=== PATIENT | male | born 1955 | race Caucasian/White ===

== ENCOUNTER → 2017-06-17 | Outpatient (REF) | payer BC ==
[2017-06-17 17:37] LABS: PLATELET COUNT, AUTOMATED 185 K/uL (150-450)
== END ==
PROVIDERS: ATTEND Physician Assistant Medical
DX: R10.9 Unspecified abdominal pain (principal)
CPT/HCPCS: 82040; 82247; 82310; 82374; 82435; 82565; 82947; 84075; 84132; 84155; 84295; 84450; 84460; 84520; 85025

== ENCOUNTER → 2017-06-17 | Outpatient (CLI) | payer BC ==
[~2017-06-17] MED LIST: IOPAMIDOL 76% 75 ML INFUS BTL 0 ML ONE; IOPAMIDOL 76% 75 ML INFUS BTL 75 ML ONE
--- NOTE | 2017-06-17 20:01 | RADIOLOGY IMAGING REPORT ---
FACILITY: [facility] PATIENT NAME: Petros Hernández : 1955 MR: [id number] V: [id number] EXAM DATE: ORDERING PHYSICIAN: OLEGARIO SALDAÑA TECHNOLOGIST: Location: [facility] [place] Patient: Petros Hernández : 1955 Visit/Account:[id number] Date of Sevice: 06/17/2017 ABDOMEN W CONTRAST HISTORY: Left flank pain, abdominal pain. TECHNIQUE: CT lung bases to the pubic symphysis obtained with IV contrast. CONTRAST: 75 cc Isovue-370 IV. COMPARISON: None. FINDINGS: Liver/gallbladder: The liver demonstrates homogeneous enhancement without evidence of mass. The gal lbladder is normal. Spleen: Normal. Adrenals: Normal. Pancreas: Normal enhancement without evidence of mass. Kidneys/: There is a 6 mm calculus at the left ureteropelvic junction, that causes moderate left h ydronephrosis. There is a 9 mm nonobstructing calculus upper pole left kidney. There is a 650 calculu s in the right kidney. The right ureter is normal. Pelvis/Bladder: The urinary bladder is normal. GI: Diverticular changes are seen on the sigmoid colon. Small bowel and stomach are normal. Vessels/nodes: Negative. Bones/soft tissues: Umbilical hernia is seen, with fat protruding through the defect. IMPRESSION: 1. Obstructing calculus left ureteropelvic junction, 6 mm. This causes moderate left hydronephrosis. 2. Bilateral nephrolithiasis. 3. Small umbilical hernia. 4. Sigmoid diverticulosis, no evidence of diverticulitis. This was called by Dr. Maldonado to OLEGARIO SALDAÑA on 06/17/2017 7:44 PM Report Dictated By: Bj Maldonado at 06/17/2017 7:44 PM Report E-Signed By: Bj Maldonado at 06/17/2017 7:57 PM WSN:[id number]
== END ==
LOC: CT 18:17
PROVIDERS: ATTEND Physician Assistant Medical
DX: N20.0 Calculus of kidney (principal); N13.30 Unspecified hydronephrosis; K57.30 Diverticulosis of large intestine without perforation or abscess without bleeding; K42.9 Umbilical hernia without obstruction or gangrene
CPT/HCPCS: 74177; Q9967